=== PATIENT | male | born 1965 | race Two or more races ===

== ENCOUNTER 2022-06-17 21:18 | Emergency (ER) | payer OTHER ==
[~2022-06-17] VITALS: Ht 175.3 cm; Wt 113.4 kg
[~2022-06-17 21:18] MED LIST: ADALAT CC30 MG PO; LISINOPRIL40 MG PO; METFORMIN HCL500 MG PO
== END 2022-06-18 10:21 | disposition home or self-care (01) ==
LOC: ER 21:18
DX: K80.20 Calculus of gallbladder without cholecystitis without obstruction (principal); E11.9 Type 2 diabetes mellitus without complications; Z79.84 Long term (current) use of oral hypoglycemic drugs; Z20.822 Contact with and (suspected) exposure to COVID-19

== ENCOUNTER 2024-05-21 23:52 | Emergency (ER) | payer OTHER ==
[~2024-05-21] VITALS: Ht 175.3 cm; Wt 113.4 kg
[2024-05-22] MEDS ORDERED: FAMOTIDINE/PF 20 MG/2 ML VIAL ONE (00:17)
[2024-05-22] MEDS ORDERED: FAMOTIDINE/PF 20 MG/2 ML VIAL IV PUSH STA (00:22)
[2024-05-22] MEDS ORDERED: 0.9 % SODIUM CHLORIDE 1,000 ML IV ONE (00:30)
[2024-05-22 00:44] LABS: HEMATOCRIT 42.3 % (39.0-48.0); HEMOGLOBIN 14.2 g/dL (13-16.00); MEAN CELL VOLUME 79.5 fL (80.0-100.00); MEAN CORPUSCULAR HEMOGLOBIN 26.7 pg (27.00-32.0); MEAN CORPUSCULAR HGB CONC 33.7 g/dl (32.0-36.0); PLATELET COUNT 205 K/uL (150-450); RED BLOOD COUNT 5.32 M/uL (4.00-6.00); RED CELL DISTRIBUTION WIDTH 14.2 % (11.5-14.5)
[2024-05-22 00:55] LABS: INR 1.02; PROTHROMBIN TIME 11.1 SECONDS (9.0-11.5)
[2024-05-22 01:00] LABS: ALBUMIN 3.8 gm/dL (3.4-5.0); BILIRUBIN TOTAL 0.34 mg/dL (0.3-1.2); CREATININE SERUM 0.99 mg/dL (0.70-1.30); GLOBULINA 4.3 G/DL (2.4-3.5); POTASSIUM 3.06 mEq/L (3.5-5.1); TOTAL PROTEIN 8.1 gm/dL (6.4-8.2)
[2024-05-22 01:03] LABS: PH,URINE 6.5 (5.0-8.0); URINE APPEARANCE Clear; URINE BILIRRUBIN Negative (NEGATIVE); URINE BLOOD Negative; URINE COLOR Yellow; URINE KETONE Negative (NEGATIVE); URINE LEUKOCYTE Trace; URINE NITRATE Negative; URINE PROTEIN Negative (NEGATIVE); URINE UROBILINOGEN 0.2 E.U./dl
[2024-05-22 01:03] LABS: GFR 77.92
[2024-05-22 01:08] LABS: URINE BACTERIA 80.6 uL (0.0-1933); URINE EPITHELIAL CELLS 2.3 uL (0.0-38.8); URINE RBC 4.7 uL (0.0-20.8); URINE WBC 11.9 uL (0.0-23.2)
[2024-05-22 01:09] LABS: URINE GLUCOSE >=1000 MG/DL (NEGATIVE)
[2024-05-22] MEDS ORDERED: MAG HYDROX/ALUMINUM HYD/SIMETH 30 ML BLIST.PACK PO STA (03:01)
[2024-05-22] MEDS ORDERED: SUCRALFATE 1 G TABLET PO STA (03:01)
[2024-05-22] MEDS ORDERED: MAG HYDROX/ALUMINUM HYD/SIMETH 30 ML BLIST.PACK PO ONE (03:03)
[2024-05-22] MEDS ORDERED: PEPCID40 MG PO (05:22)
[2024-05-22] MEDS ORDERED: ZOFRAN8 MG PO (05:22)
[2024-05-22] MEDS ORDERED: PROTONIX40 MG PO (05:22)
== END 2024-05-22 05:38 ==
LOC: ER 23:54
PROVIDERS: General Practice
DX: K21.9 Gastro-esophageal reflux disease without esophagitis (principal); R07.89 Other chest pain; I10 Essential (primary) hypertension; E11.9 Type 2 diabetes mellitus without complications; Z79.84 Long term (current) use of oral hypoglycemic drugs; Z88.8 Allergy status to other drugs, medicaments and biological substances

== ENCOUNTER → 2024-06-13 | Emergency (ER) | payer OTHER ==
[~2024-06-13] VITALS: Ht 167.6 cm; Wt 90.7 kg
[~2024-06-13] MED LIST changes: +PEPCID40 MG PO; +PROTONIX40 MG PO; +ZOFRAN8 MG PO
== END | disposition left against medical advice (07) ==
LOC: ER 21:13
DX: Z53.21 Procedure and treatment not carried out due to patient leaving prior to being seen by health care provider (principal)